=== PATIENT | female | born 1965 | race Hispanic/Latino ===

== ENCOUNTER 2017-06-14 23:55 | Emergency (ER) | payer OTHER ==
[2017-06-14 23:57] VITALS: BMI 24.1
[2017-06-15 00:35] VITALS: BP 153/93; PULSE 87; RESP 16; TEMP 99.7; O2SAT 99
--- NOTE | 2017-06-15 01:08 | ED PDOC ---
HPI: CCC, URI, Sore Throat Time Seen by Provider: 06/15/17 00:57 Chief Complaint (Nursing): Rib Injury Chief Complaint (Provider): cough, congestion History Per: Patient History/Exam Limitations: no limitations Onset/Duration Of Symptoms: Days (4) Current Symptoms Are (Timing): Still Present Associated Symptoms: Chills, Cough, Nasal Congestion. denies: Sputum Additional History Per: Patient Additional Complaint(s): 51 y/o female presents with cough/congestion x 4 days. Patient states she was seen by her PMD yesterday and told she has a cold. Patient also notes frequent falls due to "buckling" of her knees, states she is in the process of scheduling knee replacements. Patient notes two fall this week due to knee's, states the first fall she injured left side of ribs and the second fall she injured right. Patient now with bilateral anterior rib pain, worse with movement, cough, and deep breaths. Denies fever, headache, dizziness, vomiting , shortness of breath, abdominal pain, changes in bowel movements, recent travel , sick contacts. Past Medical History Reviewed: Historical Data, Nursing Documentation, Vital Signs Vital Signs: Last Vital Signs Temp 99.7 F H 06/15/17 00:31 Pulse 87 06/15/17 00:31 Resp 16 06/15/17 00:31 BP 153/93 H 06/15/17 00:31 Pulse Ox 99 06/15/17 01:09 - Medical History PMH: Anxiety, Depression, HTN - Surgical History Other surgeries: lap band - Family History Family History: States: No Known Family Hx - Living Arrangements Living Arrangements: With Family - Social History Current smoker - smoking cessation education provided: No Alcohol: None Drugs: Denies - Home Medications Home Medications: Ambulatory Orders Medication Instructions Recorded Albuterol HFA [Ventolin HFA 90 1 puff IH ASDIR #1 unit 06/13/16 mcg/actuation (8 g)] Alprazolam [Xanax] 0.5 mg PO BID 06/13/16 Benzonatate 200 mg PO TID PRN #20 capsule 06/13/16 Desloratadine [Desloratadine] 5 mg PO DAILY 06/13/16 Dexlansoprazole [Dexilant] 60 mg PO DAILY 06/13/16 Levocetirizine Dihydrochloride 5 mg PO DAILY 06/13/16 [Xyzal] Levofloxacin [Levaquin] 500 mg PO DAILY #10 tablet 06/13/16 Montelukast [Singulair] 1 unit PO HS 06/13/16 Nebivolol [Bystolic] 10 mg PO HS 06/13/16 Valsartan [Diovan] 80 mg PO DAILY 06/13/16 Venlafaxine [Effexor XR] 150 mg PO DAILY 06/13/16 Cyclobenzaprine [Cyclobenzaprine 10 mg PO BID PRN #10 tab 06/15/17 HCl] Naproxen [Naprosyn] 500 mg PO Q12 PRN #20 tablet 06/15/17 Promethazine DM [Phenergan DM 5 ml PO Q6 PRN #200 ml 06/15/17 Syrup] - Allergies Allergies/Adverse Reactions: Allergies Allergy/AdvReac Type Severity Reaction Status Date / Time No Known Allergies Allergy Verified 05/24/16 04:33 Review of Systems ROS Statement: Except As Marked, All Systems Reviewed And Found Negative Constitutional: Positive for: Chills Respiratory: Positive for: Cough Musculoskeletal: Positive for: Other (bilateral rib pain) Physical Exam - Reviewed Nursing Documentation Reviewed: Yes Vital Signs Reviewed: Yes - Physical Exam Appears: Positive for: Well, Non-toxic, No Acute Distress Head Exam: Positive for: ATRAUMATIC, NORMAL INSPECTION, NORMOCEPHALIC Skin: Positive for: Normal Color Eye Exam: Positive for: Normal appearance ENT: Positive for: Normal ENT Inspection Cardiovascular/Chest: Positive for: Regular Rate, Rhythm. Negative for: Chest Non Tender (tender to palpate bilateral anterior/inferior ribs; no ecchymosis, swelling, flail chest noted) Respiratory: Positive for: Normal Breath Sounds Gastrointestinal/Abdominal: Positive for: Normal Exam Back: Positive for: Normal Inspection Extremity: Positive for: Normal ROM Neurologic/Psych: Positive for: Alert, Oriented - ECG ECG: Positive for: Viewed By Me (reviewed by ED attending) ECG Rhythm: Positive for: Sinus Rhythm O2 Sat by Pulse Oximetry: 99 - Other Rad chest/ribs xray X-Ray: Viewed By Me X-Ray Interpretation: no acute findings - Progress ED Course And Treament: xray, ekg, ibuprofen Patient educated on findings, discharged with rx naproxen, promethazine DM, flexeril. Follow up PMD 2-3 days. Return to ED for worsening/concerning symptoms. Disposition - Clinical Impression Clinical Impression: Rib injury, URI (upper respiratory infection) - Patient ED Disposition Is Patient to be Admitted: No Counseled Patient/Family Regarding: Studies Performed, Diagnosis, Need For Followup, Rx Given - Disposition Referrals: Alfred Wong MD [Primary Care Provider] - Disposition: Routine/Home Disposition Time: 02:35 Condition: IMPROVED Prescriptions: Cyclobenzaprine [Cyclobenzaprine HCl] 10 mg PO BID PRN #10 tab PRN Reason: Muscle Spasm Naproxen [Naprosyn] 500 mg PO Q12 PRN #20 tablet PRN Reason: Pain, Moderate (4-7) Promethazine DM [Phenergan DM Syrup] 5 ml PO Q6 PRN #200 ml PRN Reason: Cough Instructions: Rib Contusion (ED), Upper Respiratory Infection (ED)
--- NOTE | 2017-06-15 14:04 | RAD ---
PROCEDURE: Radiographs of the chest and bilateral ribs HISTORY: cough, fall, rib pain COMPARISON: 05/24/2016. TECHNIQUE: Frontal radiograph of the chest and multiple oblique radiographs of the bilateral ribs were obtained. FINDINGS: RIGHT RIBS: No fracture or focal lesion visualized. LEFT RIBS: No fracture or focal lesion visualized. LUNGS: Clear. PLEURA: No pneumothorax or pleural fluid. CARDIOVASCULAR: Normal sized heart. No pulmonary vascular congestion. OTHER FINDINGS: Stable position of lap band apparatus. IMPRESSION: Unremarkable radiographs of the chest and bilateral ribs. No rib fracture.
--- NOTE | 2017-06-15 16:47 | CARD ---
APPROVED REPORT EKG Measurement Heart [id number] MD 120P24 [id number] <Conclusion> Normal sinus rhythm Normal ECG
== END 2017-06-15 03:08 | disposition home or self-care (01) ==
LOC: H.ER 23:55
DX: J06.9 Acute upper respiratory infection, unspecified (principal); S20.219A Contusion of unspecified front wall of thorax, initial encounter; W19.XXXA Unspecified fall, initial encounter; Y92.89 Other specified places as the place of occurrence of the external cause